=== PATIENT | male | born 1975 | race Caucasian/White ===

== ENCOUNTER 2020-03-20 17:05 | Emergency (ER) | payer SELFPAY ==
[~2020-03-20] VITALS: Ht 188 cm; Wt 136.4 kg
[2020-03-20 21:04] LABS: COVID AG,FIA SOURCE NASOPHARYNGEAL
[2020-03-20 22:35] VITALS: BP 141/96
== END 2020-03-20 23:05 | disposition home or self-care (01) ==
LOC: EMS 17:05
DX: U07.1 COVID-19 (principal); J06.9 Acute upper respiratory infection, unspecified; L30.9 Dermatitis, unspecified; I10 Essential (primary) hypertension
CPT/HCPCS: 87426